=== PATIENT | female | born 1985 | race Caucasian/White ===

== ENCOUNTER 2019-02-12 10:39 | Emergency (ER) | payer SELFPAY ==
[~2019-02-12] VITALS: Ht 162.6 cm; Wt 73.9 kg
[2019-02-12 10:51] VITALS: Ht 162.6 cm; Wt 73.9 kg
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
--- NOTE | 2019-02-12 12:41 | NUR ---
PATIENT OUT OF UNIT FOR U/S AT THIS TIME//APR RN
[2019-02-12 12:52] LABS: CALCIUM 9.3 mg/dL (8.5-10.1); CARBON DIOXIDE 27.6 mmol/L (21-32); CHLORIDE SERUM 106 mmol/L (98-107); CREATININE SERUM 0.6 mg/dL (0.6-1.0); GFR1 > 60 mL/min; GLUCOSE SERUM 93 mg/dL (74-106); POTASSIUM SERUM 4.4 mmol/L (3.5-5.1); SODIUM SERUM 140 mmol/L (136-145)
[2019-02-12 12:56] LABS: ALBUMIN 3.5 g/dL (3.4-5.0); ALKALINE PHOSPHATASE 63 U/L (46-116); ALT/SGPT 56 U/L (14-59); AST/SGOT 19 U/L (15-37); BILIRUBIN TOTAL 0.5 mg/dL (0.20-1.00); TOTAL PROTEIN, SERUM 7.5 g/dL (6.4-8.2)
--- NOTE | 2019-02-12 13:38 | NUR ---
PATIENT RETURNED FROM U/S, DENIES ANY PAIN AT THIS TIME//APR RN
[2019-02-12 14:00] LABS: PLATELET COUNT 340 x10^3mcL (130-400); RED CELL DISTRIBUTION WIDTH 13.4 % (11.5-14.5)
[2019-02-12 14:06] LABS: ATYPICAL LYMPH 0 %; BAND NEUTROPHIL 1 % (0-10); BASOPHIL 0 % (0-2); MONOCYTE 5 % (0-7); SEGMENTED NEUTROPHILS 80 % (37-75); rbc morphology (normal/abnorm) ABNORMAL (NORMAL)
[2019-02-12 14:07] LABS: PLATELET MORPHOLOGY PLATELETS INCREASED
--- NOTE | 2019-02-12 14:25 | NUR ---
ATTEMPTED IV ACCESS X3, UNSUCCESSFUL. WILL HAVE ANOTHER RN ATTEMPT. PT TOLERATED.
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
--- NOTE | 2019-02-12 14:53 | NUR ---
ASKED PATIENT ABOUT HER PLANS, STATES 'I'M GOING TO LEAVE. I'LL JUST GO TO [place] SOON IM DONE HERE.' ADVISED DR RAND ABOUT PATIEBNT'S DECISION. //AYDE RN
--- NOTE | 2019-02-12 14:58 | NUR ---
DR RAND AT BEDSIDE, APR RN AT BEDSIDE TO EXPLAIN THE PATIENT'S CONDITION TO HER. PATIENT DECIDED TO SIGN AMA DESPITE DR RAND'S EXPLANATIONS, STATES "I WILL GO TO [place] INSTEAD." LAB RESULTS AND CD OF U/S GIVEN TO PATIENT, ADVISED PATIENT AND TO TELL [place] [facility] OF HER ECTOPIC CONDITION/DX. PATIENT AND VERBALIZED UNDERSTANDING, NO QUESTIONS AT THIS TIME. D/C ID BAND.//AYDE RN
--- NOTE | 2019-02-12 15:05 | NUR ---
CALLED RADIOLOGY FOR CD OF U/S, STATES "WE'LL MAKE IT RIGHT NOW."//APR RN
[2019-02-12 15:16] VITALS: BP 117/72
== END 2019-02-12 15:16 | disposition left against medical advice (07) ==
LOC: ED 10:39 → MU 14:16 → ED 15:16
PROVIDERS: Emergency Medicine
DX: O00.80 Other ectopic pregnancy without intrauterine pregnancy (principal); Z98.890 Other specified postprocedural states
CPT/HCPCS: 36415; 87491; 87591